=== PATIENT | female | born 1965 | race Caucasian/White ===

== ENCOUNTER 2020-12-24 20:14 | Emergency (ER) | payer SELFPAY ==
[~2020-12-24] VITALS: Ht 152.4 cm; Wt 67.1 kg
[2020-12-24 20:25] VITALS: BP_SYST 149
--- NOTE | 2020-12-24 20:25 | NUR ---
Patient triaged and placed in waiting room. VSS and patient appears in no acute distress at this time. Accompanied by son, awaiting available bed, and MD notified of need for MSE.
--- NOTE | 2020-12-24 20:56 | NUR ---
Recieved from pt. She will be LWBS.
== END 2020-12-24 20:56 | disposition left against medical advice (07) ==
LOC: SED 20:14
DX: R51.9 Headache, unspecified (principal); Z53.21 Procedure and treatment not carried out due to patient leaving prior to being seen by health care provider